=== PATIENT | male | born 1940 | race Caucasian/White ===

== ENCOUNTER → 2016-08-26 | Outpatient (CLI) | payer MEDICARE, OTHER ==
[~2016-08-26] MED LIST: AMOX500C2 PO; CYAN500T2 PO; DOCU-168 PO; HYDR-3989 PO; LEVO75TA4 PO; LOVA20TA3 PO; MAGN400O4 PO; MAGN400T6 PO; MENT118G TOP; MIRT15TA PO; POLY17PO6 PO; SALINE FLUSH 10ml SYRINGE IVF ONE
== END ==
LOC: NWCC 08:37
PROVIDERS: ATTEND Internal Medicine
DX: L89.622 Pressure ulcer of left heel, stage 2 (principal); Z87.898 Personal history of other specified conditions; Z85.46 Personal history of malignant neoplasm of prostate; Z85.51 Personal history of malignant neoplasm of bladder; Z72.3 Lack of physical exercise; E11.21 Type 2 diabetes mellitus with diabetic nephropathy; F41.8 Other specified anxiety disorders; I10 Essential (primary) hypertension; B35.1 Tinea unguium
CPT/HCPCS: 11042; A6021; A6210; G0463

== ENCOUNTER → 2016-09-02 | Outpatient (CLI) | payer MEDICARE, OTHER ==
[~2016-09-02] MED LIST changes: -SALINE FLUSH 10ml SYRINGE IVF ONE
== END ==
LOC: NWCC 14:00
PROVIDERS: ATTEND Internal Medicine
DX: L89.622 Pressure ulcer of left heel, stage 2 (principal); Z85.46 Personal history of malignant neoplasm of prostate; Z85.51 Personal history of malignant neoplasm of bladder
CPT/HCPCS: 11042; A6210

== ENCOUNTER → 2016-09-16 | Outpatient (CLI) | payer MEDICARE, OTHER | LOC: NWCC 14:01 | PROVIDERS: ATTEND Internal Medicine | DX: L89.622 Pressure ulcer of left heel, stage 2 (principal); Z87.898 Personal history of other specified conditions; Z85.46 Personal history of malignant neoplasm of prostate; Z85.51 Personal history of malignant neoplasm of bladder ==